=== PATIENT | female | born 1940 | race Caucasian/White ===

== ENCOUNTER 2016-07-30 15:56 | Emergency (ER) | payer OTHER ==
[2016-07-30 16:01] VITALS: BP 144/68; PULSE 66; TEMP 98.2; BMI 32.0
--- NOTE | 2016-07-30 16:45 | PDOC ---
History of Present Illness - General Chief Complaint: Cold Symptoms Stated Complaint: POSSIBLE FLU Time Seen by Provider: 07/30/16 16:33 History Source: Patient Exam Limitations: Language Barrier - History of Present Illness Initial Comments: 07/30/16 16:40 BIB son who is helping with translation; pt sick today to be admitted with positive flu; pt unable to which PCP; pt has no symptoms now Associated Symptoms: denies: cough, fever/chills, malaise, rash Past History - Past Medical History Allergies/Adverse Reactions: Allergies Allergy/AdvReac Type Severity Reaction Status Date / Time unknown antibiotic Allergy Nausea Uncoded 07/30/16 16:01 Home Medications: Ambulatory Orders Amlodipine Besylate [Norvasc -] 5 mg PO DAILY 06/22/13 Clonidine HCl 0.1 mg PO PRN 06/22/13 Valsartan/Hydrochlorothiazide [Diovan Hct 160-12.5 mg Tablet] 1 combo PO DAILY 06/22/13 Anemia: No Asthma: No Cancer: No Cardiac Disorders: No CVA: No COPD: No CHF: No DVT: No Dementia: No Diabetes: No Dialysis: No GI Disorders: No Disorders: No HTN: Yes Hypercholesterolemia: Yes Kidney Stones: Yes - Psycho/Social/Smoking Cessation Hx Anxiety: No Suicidal Ideation: No Smoking History: Never smoked Hx Alcohol Use: No Drug/Substance Use Hx: No Substance Use Type: None Review of Systems - Review of Systems Constitutional: No: Chills, Fever, Malaise HEENTM: No: Ear Discharge, Nose Pain, Nose Congestion, Hearing Loss, Throat Pain , Throat Swelling, Difficulty Swallowing Respiratory: No: Symptoms reported, Cough Cardiac (ROS): No: Symptoms Reported ABD/GI: No: Symptoms Reported *Physical Exam - Vital Signs Last Vital Signs Temp Pulse Resp BP Pulse Ox 98.2 F 66 20 144/68 95 07/30/16 15:57 07/30/16 15:57 07/30/16 15:57 07/30/16 15:57 07/30/16 15:57 - Physical Exam General Appearance: Yes: Appropriately Dressed. No: Apparent Distress HEENT: positive: TMs Normal, Pharynx Normal Neck: positive: Supple. negative: Tender, Rigid, Lymphadenopathy (R), Lymphadenopathy (L) Respiratory/Chest: positive: Lungs Clear, Normal Breath Sounds. negative: Chest Tender Cardiovascular: positive: Regular Rhythm, Regular Rate. negative: Murmur Gastrointestinal/Abdominal: positive: Normal Bowel Sounds, Soft. negative: Tender Medical Decision Making - Medical Decision Making 07/30/16 16:43 will prophalaxis with tamiflu; no flu shot this year done *DC/Admit/Observation/Transfer Diagnosis at time of Disposition: Exposure to influenza - Discharge Dispostion Disposition: HOME Condition at time of disposition: Stable Admit: No - Patient Instructions Additional Instructions: please follow up with Local MD in 2 days for reevaluation
== END 2016-07-30 16:50 | disposition home or self-care (01) ==
LOC: JERFT 15:56
DX: Z20.828 Contact with and (suspected) exposure to other viral communicable diseases (principal); I10 Essential (primary) hypertension; E78.00 Pure hypercholesterolemia, unspecified
CPT/HCPCS: 99281-25

== ENCOUNTER 2017-01-25 22:03 | Emergency (ER) | payer OTHER ==
[2017-01-25 22:09] VITALS: BP 153/81; PULSE 64; TEMP 97.6; BMI 27.4
== END 2017-01-25 23:29 | disposition left against medical advice (07) ==
LOC: JER 22:03
DX: Z53.21 Procedure and treatment not carried out due to patient leaving prior to being seen by health care provider (principal)
CPT/HCPCS: 99281-25

== ENCOUNTER 2017-05-09 06:09 | Day surgery (SDC) | payer OTHER ==
[2017-05-08 11:36] VITALS: BMI 28.9
[2017-05-09] MEDS ORDERED: CEFAZOLIN 2 GM/D5W 50 ML IVPB ONE (07:51)
[2017-05-09] MEDS ORDERED: ceFAZolin SODIUM 1 GM VIAL IVPB ONE (08:05)
[2017-05-09] MEDS ORDERED: morphine SULFATE 4 MG/ML VIAL IVPUSH PRN (08:59)
[2017-05-09] MEDS ORDERED: ONDANSETRON 4 MG/2 ML VIAL IVPUSH PRN (09:01)
[2017-05-09] MEDS ORDERED: oxyCODONE HCL 5 MG TABLET PO PRN ×2 (09:05→09:29)
[2017-05-09] MEDS ORDERED: PROMETHAZINE HCL 25 MG/1 ML VIAL ONE (09:26)
[2017-05-09] MEDS ORDERED: PROMETHAZINE HCL 25 MG/1 ML VIAL IVPUSH PRN (09:29)
[2017-05-09] MEDS ORDERED: LACTATED RINGERS SOLUTION 1,000 ML IV SCH (09:30)
[2017-05-09] MEDS ORDERED: PROMETHAZINE HCL 25 MG/1 ML VIAL IVPUSH ONE (09:35)
[2017-05-09] MEDS ORDERED: oxyCODONE HCL 5 MG TABLET ONE (11:57)
[2017-05-09] MEDS ORDERED: oxyCODONE HCL 5 MG TABLET PO ONE (12:00)
--- NOTE | 2017-05-09 12:03 | OP ---
DATE OF OPERATION: 05/09/2017 PREOPERATIVE DIAGNOSIS: Complete utero-vaginal prolapse. PROCEDURE PERFORMED: A vaginal hysterectomy with colpectomy, enterocele repair, and perineoplasty. PRIMARY SURGEON: Darion Ordaz MD DIRECTOR INFORMATICS: Scott Sun MD DESCRIPTION OF PROCEDURE: After adequate anesthesia, patient was prepped and draped in the dorsal lithotomy position. A dilute solution of Pitressin was injected throughout the entire vaginal epithelium. A Spring catheter was inserted. A vertical incision was made on the vaginal epithelium, and the anterior and posterior cul-de-sacs were entered without any difficulty. The uterosacral and cardinal ligament complexes, followed by the uterine artery, followed by the ovarian ligament were clamped, cut, and suture ligated and removed. Ovaries were palpated and visualized to be normal, but too high up to take out safely from below and, therefore, had to be left behind. Anterior cul-de-sac was closed off using 0 Vicryl suture circumferential stitch x2. The cystocele was dissected away from the anterior vaginal wall and then plicated using 0 Vicryl suture in circumferential stitch x3 layers. Excess vaginal epithelium was then excised. The sling was then placed in by Dr. Sun. Please review his OR report. Once this was completed, the cystoscopy was performed, and both ureters were noted to be patent. The vaginal epithelium was closed anterior to posterior using 2-0 Vicryl suture in continuous fashion. Rectal examination negative for any foreign bodies. Also, please note that there were no foreign bodies in the bladder. Kelvin [id number]
--- NOTE | 2017-05-09 12:21 | OP ---
DATE OF OPERATION: 05/09/2017 PREOPERATIVE DIAGNOSIS: Stress urinary incontinence. POSTOPERATIVE DIAGNOSIS: Stress urinary incontinence. PROCEDURE: Suburethral sling placement. SURGEON: Scott Sun MD INDICATIONS: The patient is a 77-year-old female who is admitted for vaginal hysterectomy, cystocele repair by Dr. Ordaz and sling repair by myself. With regard to sling, the patient understood the risk of bleeding, infection, stricture formation, erosion of sling, urinary tension, De [place] urge incontinence, potential need for additional procedures, and potential injury to adjacent organs. DESCRIPTION OF PROCEDURE: After informed consent was obtained, the patient was taken to the OR and placed supine on the operating room table. Cardiac monitoring was administered and general anesthesia established. She was prepped and draped in the dorsal lithotomy position with her legs in candy cane stirrups. Dr. Ordaz proceeded with the vaginal hysterectomy and cystocele repair for which I assisted him in. At this point then I proceeded to perform the sling. Pitressin was injected in the suburethral space, and a mid urethral, suburethral incision was created with a No. 15 blade. The vaginal epithelium was dissected from the undersurface of the urethra bilaterally using sharp and blunt dissection. Using finger dissection, the obturator fossa was palpated vaginally. At this point, attention was turned to performing the sling. The right trocar was placed onto the anchor of the sling. The trocar was advanced into the obturator fossa and then the obturator membrane was pierced and then a quarter turn allowed the sling to be anchored on the patient's right side. In a similar fashion, the left anchor was attached to the trocar, and the trocar was advanced vaginally into the obturator membrane. The obturator membrane was pierced and then a quarter turn of the trocar allowed the anchor to be positioned beyond the obturator membrane. A pull on each side indicated appropriate fixation to the obturator membrane without slippage or sliding. The sling was slightly tensioned until a right-angle clamp could be easily placed between the sling and the undersurface of the urethra to minimize undue tension. With the sling in place, the vaginal mucosa overlying the mid urethra was then enclosed with 2-0 Vicryl and then the rest of the procedure closure of the cystocele repair was done by Dr. Ordaz. Prior to Dr. Ordaz's closure, I performed a cystoscopy to confirm no evidence of any bladder or urethral injury, and bilateral ureteral orifices were seen with normal efflux. Then Dr. Ordaz finished closure of his part of the procedure. The patient was then awoken from anesthesia and transferred to the recovery room in stable condition. There were no complications. Kelvin [id number]
[2017-05-09] MEDS: DEXTROSE 5%-0.45% SALINE 1,000 ML IV SCH ×2 (14:22→22:24)
[2017-05-09] MEDS: FUROSEMIDE 20 MG TABLET (FP) PO SCH (14:33)
[2017-05-09] MEDS: amLODIPine BESYLATE 5 MG TABLET (FP) PO SCH ×2 (14:33→21:29)
[2017-05-09] MEDS: METOPROLOL SUCCINATE 50 MG TAB.SR.24H (FP) PO SCH (14:34)
[2017-05-09] MEDS: hydrALAZINE HCL 25 MG TABLET (FP) PO SCH ×2 (14:38→21:28)
[2017-05-10] MEDS: hydrALAZINE HCL 25 MG TABLET (FP) PO SCH ×3 (10:11→21:22)
[2017-05-10] MEDS ORDERED: ACETAMINOPHEN 325 MG TABLET (FP) PO PRN (10:35)
--- NOTE | 2017-05-10 10:41 | PN ---
Progress Note (short form) - Note Progress Note: Post op day#1.S/P Vaginal hysterectomy with BSO,suburetheral sling,colpectomy and enterocele repair under GA uneventful.Patient stable and c/o some pain for which i ordered Tylenol as she does not want to take narcotics.No any anesthesia related problem.Patient DC from the anesthesia care.
[2017-05-10] MEDS: DEXTROSE 5%-0.45% SALINE 1,000 ML IV SCH ×2 (11:18→18:19)
[2017-05-10] MEDS: METOPROLOL SUCCINATE 50 MG TAB.SR.24H (FP) PO SCH (11:24)
[2017-05-10] MEDS: FUROSEMIDE 20 MG TABLET (FP) PO SCH (11:24)
[2017-05-10] MEDS: amLODIPine BESYLATE 5 MG TABLET (FP) PO SCH ×2 (11:24→21:22)
--- NOTE | 2017-05-10 16:03 | PATH ---
Surgical Pathology Report Patient Name: HEATHER MORSE Med. Rec. #: [id number] /Age/Gender: 1940 (Age: 77) / F Account: [id number] Location: [facility] MED/SURG Taken: 05/09/2017 Received: 05/09/2017 Reported: 05/10/2017 Physicians: Scott Sun M.D. Specimen(s) Received UTERUS Clinical History Prolapse, cystocele, rectocele Final Diagnosis UTERUS AND CERVIX, HYSTERECTOMY: UTERUS AND CERVIX, 75 GRAMS, WITH ATROPHIC ENDOMETRIUM, UNREMARKABLE MYOMETRIUM, AND UNREMARKABLE CERVIX. CYSTIC AREA ATTACHED TO THE VAGINAL CUFF SUGGESTIVE OF CYSTOCELE PRESENT. Electronically Signed Afshin Eddy M.D. Gross Description Received in formalin labeled "uterus," is a 75 g hysterectomy specimen with an attached 7.2 x 4.3 cm vaginal cuff. There is no attached adnexa present. The specimen measures 7.3 cm from superior to inferior, 4.0 cm from left to right and 2.5 cm from anterior to posterior. The vaginal cuff displays a focal cystic-appearing lesion, consistent with a cystocele. The endometrial cavity measures 3.5 cm in length and 1.6 cm from cornu to cornu. The endometrium is perez and averages 0.1 cm in thickness. The myometrium is perez-pink and averages 1.2 cm in thickness. No intramural nodules are identified. [employer] sections are submitted in 7 cassettes as follows: 1-anterior vaginal cuff; 2-posterior vaginal cuff; 3-vaginal cuff with cystocele; 7-6-[id number] endomyometrium; 9-0-xxiobnuqp endomyometrium. /05/09/2017 [facility]05/09/2017
[2017-05-10] MEDS ORDERED: BISACODYL 10 MG SUPP.RECT RC ONE ×2 (21:15→23:00)
[2017-05-11] MEDS: hydrALAZINE HCL 25 MG TABLET (FP) PO SCH (06:51)
[2017-05-11] MEDS: FUROSEMIDE 20 MG TABLET (FP) PO SCH (10:04)
[2017-05-11] MEDS: METOPROLOL SUCCINATE 50 MG TAB.SR.24H (FP) PO SCH (10:04)
[2017-05-11] MEDS: amLODIPine BESYLATE 5 MG TABLET (FP) PO SCH (10:04)
[2017-05-11 10:11] VITALS: PULSE 72
[2017-05-11 10:36] VITALS: BP 135/64; TEMP 98.5
== END 2017-05-11 12:26 | disposition home or self-care (01) ==
LOC: JASUSAT 06:09 → J8W 13:16 → JASUSAT 05-11 12:26
PROVIDERS: ATTEND Obstetrics & Gynecology Female Pelvic Medicine and Reconstructive Surgery
PROC: 0TSD0ZZ Reposition Urethra, Open Approach (ICD-10-PCS; principal; 2017-05-09 07:30)
PROC: 0UTG7ZZ Resection of Vagina, Via Natural or Artificial Opening (ICD-10-PCS; 2017-05-09 07:30)
PROC: 0JQC0ZZ Repair Pelvic Region Subcutaneous Tissue and Fascia, Open Approach (ICD-10-PCS; 2017-05-09 07:30)
DX: N81.3 Complete uterovaginal prolapse (principal); N39.3 Stress incontinence (female) (male)
CPT/HCPCS: 86850; 86900; 86901; 88305-TC; 94760

== ENCOUNTER 2018-02-16 12:12 | Day surgery (SDC) | payer OTHER ==
[2018-02-15 09:32] VITALS: BMI 26.9
[2018-02-16 13:50] VITALS: TEMP 97.8
[2018-02-16 14:23] VITALS: PULSE 51
[2018-02-16 15:11] VITALS: BP 144/71
--- NOTE | 2018-02-20 15:13 | PATH ---
Surgical Pathology Report Patient Name: HEATHER MORSE [facility]. Rec. #: [id number] /Age/Gender: 1940 (Age: 77) / F Account: [id number] Location: U-ENDOSCOPY Taken: 02/16/2018 Received: 02/19/2018 Reported: 02/20/2018 Physicians: Chan Peres M.D. Specimen(s) Received A: BX 2ND PORTION DUODENUM AND BULB B: BX GASTRIC ANTRUM C: BX ANTRUM POLYP FROM HOT SNARE Clinical History Screening Postoperative diagnosis: Gastric polyp Final Diagnosis A. SECOND PORTION DUODENUM AND BULB OF, BIOPSY: DUODENAL MUCOSA WITH MILD CHRONIC DUODENITIS. B. GASTRIC ANTRUM, BIOPSY: GASTRIC MUCOSA WITH MILD CHRONIC GASTRITIS. IMMUNOSTAIN IS NEGATIVE FOR H. PYLORI ORGANISMS. C. ANTRUM POLYP, POLYPECTOMY: HYPERPLASTIC POLYP. IMMUNOSTAIN IS NEGATIVE FOR H. PYLORI ORGANISMS Electronically Signed Amee Bowden M.D. Gross Description A. Received in formalin, labeled "biopsy second portion of duodenum and bulb" are 3 perez, irregular portions of soft tissue ranging from 0.3-0.4 cm. in greatest dimension. The specimens are submitted in toto in one cassette. B. Received in formalin, labeled "biopsy antrum" are 4 perez, irregular portions of soft tissue ranging from 0.1-0.4 cm. in greatest dimension. The specimens are submitted in toto in one cassette. C. Received in formalin labeled "gastric antrum polyp," are 5 perez, polypoid portions of soft tissue ranging from 0.4-0.9 cm in greatest dimension. The specimens are submitted in toto in one cassette. 02/19/2018 [facility]02/19/2018
== END 2018-02-16 15:00 | disposition home or self-care (01) ==
LOC: JASU-ENDO 12:12
PROVIDERS: ATTEND Internal Medicine Gastroenterology
PROC: 0DB68ZX Excision of Stomach, Via Natural or Artificial Opening Endoscopic, Diagnostic (ICD-10-PCS; 2018-02-16)
PROC: 0DB98ZX Excision of Duodenum, Via Natural or Artificial Opening Endoscopic, Diagnostic (ICD-10-PCS; 2018-02-16)
PROC: 0DJD8ZZ Inspection of Lower Intestinal Tract, Via Natural or Artificial Opening Endoscopic (ICD-10-PCS; principal; 2018-02-16 12:15)
DX: Z12.11 Encounter for screening for malignant neoplasm of colon (principal); R19.5 Other fecal abnormalities; K57.30 Diverticulosis of large intestine without perforation or abscess without bleeding; K64.8 Other hemorrhoids; K31.7 Polyp of stomach and duodenum; K29.40 Chronic atrophic gastritis without bleeding
CPT/HCPCS: 43239; 43251; G0121; 88305-TC; 88342-TC

== ENCOUNTER 2020-02-17 09:58 | Emergency (ER) | payer OTHER ==
[2020-02-17 10:15] VITALS: TEMP 98; BMI 24.7
[2020-02-17] MEDS ORDERED: FAMOTIDINE 20 MG/50 ML IVPB 20 MG/50 ML MG IVPB ONE ×3 (11:33→14:48)
[2020-02-17] MEDS ORDERED: ONDANSETRON 4 MG/2 ML VIAL IVPUSH ONE (11:33)
[2020-02-17] MEDS ORDERED: SODIUM CHLORIDE 1,000 ML IV STA (11:34)
--- NOTE | 2020-02-17 12:23 | PDOC ---
Documentation entered by Billie Oscar SCRIBE, acting as scribe for Viry Solis MD. Viry Solis MD: This documentation has been prepared by the shelbieibeDayne Ana, SCRIBE, under my direction and personally reviewed by me in its entirety. I confirm that the documentation accurately reflects all work, treatment, procedures, and medical decision making performed by me. Attending Attestation - Resident Resident Name: Salvatore Rachel - ED Attending Attestation I have performed the following: I have examined & evaluated the patient, The case was reviewed & discussed with the resident, I agree w/resident's findings & plan, Exceptions are as noted - HPI HPI: 02/17/20 11:39 Patient is an 79 year old female with a significant past medical history of HTN, HLD, BPPV and IBS who p/w abdominal pressure which she characterizes as gas, as well as room-spinning dizziness for the past 2 days worse last night. She notes that standing from sitting position makes her symptoms worse. Endorses chronic tinnitus unchanged over the past 4 years. Also notes chronic constipation unchanged today. Patient denies: JAMA, CP, back pain, f/c/n/v/d Allergies: see nurse's note - Physicial Exam PE: 02/17/20 11:46 GENERAL: elderly, pleasant, nontoxic-appearing, A/Ox4, no distress, answers questions appropriately HEENT: PERRLA, EOMI, moist mucous membranes NECK/BACK: no midline ttp, no spinal stepoff or deformity, no hematoma, full ROM, neck supple CARDIOVASCULAR: regular rate/rhythm, no MGR, strong peripheral pulses, capillary refill <2 seconds, extremities wwp, no edema LUNGS/RESPIRATORY: no respiratory distress, CTAB GI/ABDOMEN: symmetric [id number], normoactive BS, soft, mild epigastric ttp, no midline pulsatile masses : no CVA tenderness MSK/EXTREMITIES: no muscle atrophy, no acute deformity SKIN: warm and dry, no pallor, no jaundice, no rash, no pathologic-appearing bruising, no skin breakdown, no cuts, no lesions NEUROLOGICAL: GCS 15, CN II-XII grossly intact, 5/5 strength proximally and distally, no facial droop, horizontal nystagmus on extreme bilateral horizontal gaze, +[place]-Hallpike, no vertical nystagmus, negative Romberg, no truncal ataxia, no pronator drift, gait not tested at this time - Medical Decision Making 02/17/20 12:18 79YOF p/w room-spinning dizziness with their recall of sxs consistent with vertigo. Initial Vital Signs Temp Pulse Resp BP Pulse Ox 98 F 58 L 18 151/64 99 02/17/20 10:13 02/17/20 10:13 02/17/20 10:13 02/17/20 10:13 02/17/20 10:13 DDX IBNLT: most likely peripheral cause e.g. BPPV, otitis media, vestibular neuritis, Meniere disease, perilymphatic fistula, semicircular canal dehiscence syndrome, etc. Very unlikely central cause given lack Possibly non-vertiginous cause of dizziness (i.e. lightheadedness c/f pre-syncope). Provider Orders Category Date Time Status HEAD CT WITHOUT CONTRAST [CT] Stat CT Scan 02/17/20 15:06 Completed EKG [ELECTROCARDIOGRAM] [CARD] Stat Cardiology 02/17/20 10:20 Completed EKG needed NOW Care 02/17/20 10:20 Completed CBC WITH DIFFERENTIAL Stat Lab 02/17/20 13:05 Completed CMP [COMP METABOLIC PANEL] Stat Lab 02/17/20 13:05 Completed LIPASE Stat Lab 02/17/20 13:05 Completed TROPONIN I ([facility]) Stat Lab 02/17/20 13:05 Completed UA ([facility]) ONLY Stat Lab 02/17/20 11:33 Uncollected Famotidine 20 mg/50 ml Ivpb [Pepcid 20 mg Premixed Ivpb Medication 02/17/20 11:33 Discontinued -] 20 mg in 50 ml IVPB ONCE Famotidine 20 mg/50 ml Ivpb [Pepcid 20 mg Premixed Ivpb Medication 02/17/20 13:09 Discontinued -] 20 mg in 50 ml IVPB UD Famotidine 20 mg/50 ml Ivpb [Pepcid 20 mg Premixed Ivpb Medication 02/17/20 14:48 Discontinued -] 20 mg in 50 ml IVPB UD Meclizine HCl [Antivert -] Medication 02/17/20 13:09 Discontinued 25 mg .ROUTE .STK-MED ONE Meclizine HCl [Antivert -] Medication 02/17/20 12:24 Discontinued 25 mg PO ONCE ONE Ondansetron Injection [Zofran Injection] Medication 02/17/20 11:33 Discontinued 4 mg IVPUSH ONCE ONE Sodium Chloride [Normal Saline -] 1,000 ml Medication 02/17/20 11:34 Discontinued IV ASDIR Urine Culture [URINE CULTURE] Stat Micro 02/17/20 11:33 Uncollected IV Insert NOW Phy Order 02/17/20 11:33 Active Medications Discontinued Medications Generic Name Dose Route Start Last Admin Trade Name Fredeejay PRN Reason Stop Dose Admin Famotidine/Sodium Chloride 20 mg in 50 mls @ 100 mls/hr 02/17/20 11:33 02/17/20 14:51 Pepcid 20 Mg Premixed Ivpb - IVPB 02/17/20 12:02 100 mls/hr ONCE ONE Administration Sodium Chloride 1,000 mls @ 1,000 mls/hr 02/17/20 11:34 02/17/20 13:45 Normal Saline - IV 02/17/20 12:33 1,000 mls/hr ASDIR STA Administration Famotidine/Sodium Chloride Confirm 02/17/20 13:09 Pepcid 20 Mg Premixed Ivpb - Administered 02/17/20 13:10 Dose 20 mg in 50 mls @ ud IVPB .STK-MED ONE Famotidine/Sodium Chloride Confirm 02/17/20 14:48 Pepcid 20 Mg Premixed Ivpb - Administered 02/17/20 14:49 Dose 20 mg in 50 mls @ ud IVPB .STK-MED ONE Meclizine HCl 25 mg 02/17/20 12:24 02/17/20 13:45 Antivert - PO 02/17/20 12:25 25 mg ONCE ONE Administration Meclizine HCl Confirm 02/17/20 13:09 Antivert - Administered 02/17/20 13:10 Dose 25 mg .ROUTE .STK-MED ONE Ondansetron HCl 4 mg 02/17/20 11:33 02/17/20 13:45 Zofran Injection IVPUSH 02/17/20 11:34 4 mg ONCE ONE Administration Lab Results WBC 4.9 K/mm3 (4.0-10.0) 02/17/20 13:05 RBC 5.06 M/mm3 (3.60-5.2) 02/17/20 13:05 Hgb 16.0 GM/dL (10.7-15.3) H 02/17/20 13:05 Hct 47.5 % (32.4-45.2) H 02/17/20 13:05 MCV 93.8 fl (80-96) 02/17/20 13:05 MCH 31.7 pg (25.7-33.7) 02/17/20 13:05 MCHC 33.8 g/dl (32.0-36.0) 02/17/20 13:05 RDW 14.0 % (11.6-15.6) 02/17/20 13:05 Plt Count 245 K/MM3 (134-434) D 02/17/20 13:05 MPV 9.0 fl (7.5-11.1) 02/17/20 13:05 Absolute Neuts (auto) 2.7 K/mm3 (1.5-8.0) 02/17/20 13:05 Neutrophils % 55.4 % (42.8-82.8) 02/17/20 13:05 Lymphocytes % 31.2 % (8-40) 02/17/20 13:05 Monocytes % 9.3 % (3.8-10.2) 02/17/20 13:05 Eosinophils % 2.5 % (0-4.5) 02/17/20 13:05 Basophils % 1.6 % (0-2.0) 02/17/20 13:05 Nucleated RBC % 0 % (0-0) 02/17/20 13:05 Sodium 138 mmol/L (136-145) 02/17/20 13:05 Potassium 4.1 mmol/L (3.5-5.1) 02/17/20 13:05 Chloride 100 mmol/L (98-107) 02/17/20 13:05 Carbon Dioxide 30 mmol/L (21-32) 02/17/20 13:05 Anion Gap 8 MMOL/L (8-16) 02/17/20 13:05 BUN 13.2 mg/dL (7-18) 02/17/20 13:05 Creatinine 0.6 mg/dL (0.55-1.3) 02/17/20 13:05 Est GFR (CKD-EPI)AfAm 99.07 02/17/20 13:05 Est GFR (CKD-EPI)NonAf 85.48 02/17/20 13:05 Random Glucose 107 mg/dL (74-106) H 02/17/20 13:05 Calcium 10.2 mg/dL (8.5-10.1) H 02/17/20 13:05 Total Bilirubin 0.7 mg/dL (0.2-1) 02/17/20 13:05 AST 30 U/L (15-37) 02/17/20 13:05 ALT 33 U/L (13-61) 02/17/20 13:05 Alkaline Phosphatase 59 U/L (45-117) 02/17/20 13:05 Troponin I < 0.02 ng/ml (0.00-0.05) 02/17/20 13:05 Total Protein 8.4 g/dl (6.4-8.2) H 02/17/20 13:05 Albumin 4.3 g/dl (3.4-5.0) 02/17/20 13:05 Lipase 136 U/L (73-393) 02/17/20 13:05 CT/HEAD CT WITHOUT CONTRAST Evaluate for vertigo CT scan of the head without intravenous contrast Since prior CT scan of the head dated 09/19/2009, there remains moderate volume loss and ventricular dilatation. Mild periventricular chronic microvascular ischemic disease changes are present. No mass lesion, abigail ss acute infarct or intracranial hemorrhage are identified. There is no shift of the midline structures. The craniocervical junction appears unremarkable. The calvarium is intact. Mild deviation of the nasal septum to the right IMPRESSION: No significant interval change or CT evidence of acute intracranial pathology is identified. The patient's symptoms have resolved in the ED with medications. She is able to ambulate per her normal baseline, no ataxia, no neuro focal deficits, and she is appropriate for discharge home with close outpatient follow-up. Specific return precautions are discussed as in resident note. Heart Score/ECG Review #1 02/17/20 10:28 Sinus rhythm, rate 55, normal axis and intervals, no ischemic ST-T changes Discharge - Discharge Information Problems reviewed: Yes Clinical Impression/Diagnosis: Epigastric pain, Vertigo Condition: Stable Disposition: HOME - Admission No - Additional Discharge Information Prescriptions: Meclizine HCl 25 mg PO BID PRN #10 tablet PRN Reason: Vertigo Omeprazole 20 mg PO DAILY #14 capsule. - Follow up/Referral Referrals: Paulo Correa MD [Primary Care Provider] - - Patient Discharge Instructions Patient Printed Discharge Instructions: DI for Vertigo, DI for Epigastric Pain Additional Instructions: You were seen in the ER for vertigo and upper abdominal discomfort. We did an exam, laboratory work on your blood and urine, an electrocardiogram, and a head CT, and we did not find any concerning results. We gave you medications here in the department which did help your symptoms. After our assessment, we do not believe you are having a medical emergency at this time, and we believe you are safe to go home. Please follow up with your regular PCP in 1-3 days. Call their clinic, tell them you were seen in the ER, and tell them you need a follow-up. If you have any new or worsening symptoms (especially fainting or falling down, headache, neck pain, room-spinning vertigo-type dizziness that is new for you, numbness, tingling, new weakness of one or more parts of your body, vision changes, slurred speech, loss of consciousness, or seizures) please come back to the ER at any time (24 hours a day). Please do not drive if you are dizzy. If you are having severe or life threatening symptoms, or symptoms that make it unsafe to drive or have someone drive you, please call 911 supervisor [email or web address] your medications that we are sending to your pharmacy and take them as directed. - Post Discharge Activity
[2020-02-17] MEDS ORDERED: MECLIZINE HCL 25 MG TABLET (FP) PO ONE (12:24)
--- NOTE | 2020-02-17 12:54 | PDOC ---
History of Present Illness - History of Present Illness Initial Comments: 02/17/20 12:40 79yo female with PMH HTN and HLD presents with dizziness since last night. States she feels like the room is spinner, her head feel like it is "big" and "heavy", feels unsteady on her feet. Complains of ringing in her ears for years, no change recently. Also complains of acute on chronic belching. States it has been going on for years and has a GI appointment at 5pm today. Also complains of acute on chronic epigastric pain, non-radiating. No relieving or exacerbating factors. Denies headache, fever, chills, n/v, CP, SOB, urinary symptoms. ROS GENERAL/CONSTITUTIONAL: No fever or chills. No weakness. HEAD, EYES, EARS, NOSE AND THROAT: No change in vision. No ear pain or discharge. No sore throat. chronic ear ringing CARDIOVASCULAR: No chest pain or shortness of breath RESPIRATORY: No cough, wheezing, or hemoptysis. GASTROINTESTINAL: No nausea, vomiting, diarrhea. belching. constipation (BM every day, but strains and feels like too little comes out) GENITOURINARY: No dysuria, frequency, or change in urination. MUSCULOSKELETAL: No joint or muscle swelling or pain. No neck or back pain. SKIN: No rash NEUROLOGIC: vertigo. No headache, loss of consciousness, or change in strength/sensation. ENDOCRINE: No increased thirst. No abnormal weight change HEMATOLOGIC/LYMPHATIC: No anemia, easy bleeding, or history of blood clots. ALLERGIC/IMMUNOLOGIC: No hives or skin allergy. PE GENERAL: Awake, alert, and fully oriented, in no acute distress HEAD: No signs of trauma, normocephalic, atraumatic EYES: PERRLA, EOMI, sclera anicteric, conjunctiva clear ENT: Auricles normal inspection, hearing grossly normal, nares patent, oropharynx clear without exudates. Moist mucosa. TMs not visualized secondary to copious cerumen NECK: Normal ROM, supple, no lymphadenopathy, JVD, or masses LUNGS: No distress, speaks full sentences, clear to auscultation bilaterally HEART: Regular rate and rhythm, normal S1 and S2, no murmurs, rubs or gallops, peripheral pulses normal and equal bilaterally. ABDOMEN: Soft, nontender, normoactive bowel sounds. No guarding, no rebound. No masses EXTREMITIES : Normal inspection, Normal range of motion, no edema. No clubbing or cyanosis. NEUROLOGICAL: Reproduction of vertigo symptoms when going from lying flat to seated position. HINTS Exam: positive head impulse test (gaze deviation when head is turned left), no nystagmus, no skew. Cranial nerves II through XII grossly intact. Normal speech, normal gait, normal strength and sensation in all extremities SKIN: Warm, Dry, normal turgor, no rashes or lesions noted MDM: 79yo female presents with vertigo, as well as epigastric pain and belching. HINTS exam perfomed by the ED summer intern indicates periferal vertigo, although this exam was validated when performed by neuro-ophthalmologists. Elderly female with vascular risk factors, so will get head CT to evaluate for posterior CVA and consider f/u with MRI. Most likely BPPV. Epigastric pain and belching is likely a chronic issue, but could be atypical presentation of ACS or other abdominal pathology. EKG was sinus bradycardia without ischemic changes. Will get CBC, CMP, lipase, trops, UA. Will treat with famotidine, meclizine, zofran and reevaluate. 02/17/20 18:[address] head were negative. Patient reports decrease symptoms and able to ambulate without assistance. DC home with meclizine, zofran, PCP f/u, and return precautions. Pt agrees to plan. 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) Cardiac Disorders: No CVA: No COPD: No CHF: No DVT: No Dementia: No Diabetes: No Dialysis: No GI Disorders: Yes (GASTRIC POLYP SURGERY, PEPTIC ULCER DISEASE) Disorders: No HTN: Yes Hypercholesterolemia: Yes Kidney Stones: Yes Liver Disease: No Seizures: No Thyroid Disease: No - Surgical History Abdominal Surgery: No Appendectomy: No Cardiac Surgery: No Cholecystectomy: No Lung Surgery: No Neurologic Surgery: No Orthopedic Surgery: No - Psycho-Social/Smoking History Smoking History: Never smoked Have you smoked in the past 12 months: No - Substance Abuse Hx (Audit-C & DAST Scrn) How often the patient has a drink containing alcohol: Never Score: In Men: 4 or > Positive; In Women: 3 or > Positive: 0 Screen Result (Pos requires Nsg. Audit-10AR): Negative In the last yr the pt used illegal drug/Rx for NonMed reason: No Score: Yes response is considered Positive: 0 Screen Result (Positive result requires Nsg. DAST-10): Negative <Salvatore Rachel - Last Filed: 02/17/20 18:54> <Viry Solis - Last Filed: 02/18/20 12:19> - Medical History Allergies/Adverse Reactions: Allergies Allergy/AdvReac Type Severity Reaction Status Date / Time amoxicillin Allergy Verified 02/17/20 10:08 citalopram Allergy Verified 02/17/20 10:08 levofloxacin [From Levaquin] Allergy Verified 02/17/20 10:08 nitrofurantoin Allergy Verified 02/17/20 10:08 macrocrystalline [From Macrodantin] Sulfa (Sulfonamide Allergy Verified 02/17/20 10:08 Antibiotics) Home Medications: Ambulatory Orders Alprazolam [Xanax] 0.5 mg PO ASDIR 01/25/17 Amlodipine Besylate 5 mg PO HS 01/25/17 Aspirin [ASA -] 81 mg PO DAILY 01/25/17 Atorvastatin Ca [Lipitor] 40 mg PO HS 01/25/17 Calcium Carbonate [Calcium] 500 mg PO DAILY 01/25/17 Cholecalciferol (Vitamin D3) [Vitamin D3] 1,000 unit PO DAILY 01/25/17 Furosemide [Lasix -] 20 mg PO DAILY 01/25/17 Metoprolol Succinate [Toprol Xl] 50 mg PO BID 01/25/17 Multivit-Min/FA/Lycopen/Lutein [Centrum Silver Tablet] 1 each PO DAILY 01/25/17 Omeprazole 20 mg PO DAILY 01/25/17 hydrALAZINE HCL [Apresoline -] 25 mg PO TID 01/25/17 Valsartan/Hydrochlorothiazide [Valsartan-Hctz 320-25 mg Tab] 80 mg PO BID Meclizine HCl 25 mg PO BID PRN #10 tablet 02/17/20 Omeprazole 20 mg PO DAILY #14 capsule. 02/17/20 Polyethylene Glycol 3350 [Miralax (For Bowel Prep) -] 17 gm PO DAILY PRN 02/17/20 *Physical Exam - Vital Signs Last Vital Signs Temp Pulse Resp BP Pulse Ox 98 F 58 L 18 151/64 99 02/17/20 10:13 02/17/20 10:13 02/17/20 10:13 02/17/20 10:13 02/17/20 10:13 <Salvatore Rachel - Last Filed: 02/17/20 18:54> - Vital Signs Last Vital Signs Temp Pulse Resp BP Pulse Ox 98 F 60 15 139/65 99 02/17/20 10:13 02/17/20 17:02 02/17/20 17:02 02/17/20 17:02 02/17/20 17:02 <Viry Solis - Last Filed: 02/18/20 12:19> ED Treatment Course - LABORATORY CBC & Chemistry Diagram: 02/17/20 13:05 02/17/20 13:05 <Salvatore Rachel - Last Filed: 02/17/20 18:54> - LABORATORY CBC & Chemistry Diagram: 02/17/20 13:05 02/17/20 13:05 - ADDITIONAL ORDERS Additional order review: 02/17/20 13:05 RBC 5.06 MCV 93.8 MCHC 33.8 RDW 14.0 MPV 9.0 Neutrophils % 55.4 Lymphocytes % 31.2 Monocytes % 9.3 Eosinophils % 2.5 Basophils % 1.6 - Medications Given in the ED: ED Medications Discontinued Medications Generic Name Dose Route Start Last Admin Trade Name Freq PRN Reason Stop Dose Admin Famotidine/Sodium Chloride 20 mg in 50 mls @ 100 mls/hr 02/17/20 11:33 02/17/20 14:51 Pepcid 20 Mg Premixed Ivpb - IVPB 02/17/20 12:02 100 mls/hr ONCE ONE Administration Sodium Chloride 1,000 mls @ 1,000 mls/hr 02/17/20 11:34 02/17/20 13:45 Normal Saline - IV 02/17/20 12:33 1,000 mls/hr ASDIR STA Administration Meclizine HCl 25 mg 02/17/20 12:24 02/17/20 13:45 Antivert - PO 02/17/20 12:25 25 mg ONCE ONE Administration Ondansetron HCl 4 mg 02/17/20 11:33 02/17/20 13:45 Zofran Injection IVPUSH 02/17/20 11:34 4 mg ONCE ONE Administration <Viry Solis - Last Filed: 02/18/20 12:19> Discharge - Discharge Information Problems reviewed: Yes <Salvatore Rachel - Last Filed: 02/17/20 18:54> <Viry Solis - Last Filed: 02/18/20 12:19> - Discharge Information Clinical Impression/Diagnosis: Epigastric pain, Vertigo Condition: Stable Disposition: HOME - Additional Discharge Information Prescriptions: Meclizine HCl 25 mg PO BID PRN #10 tablet PRN Reason: Vertigo Omeprazole 20 mg PO DAILY #14 capsule.dr - Follow up/Referral Referrals: Paulo Correa MD [Primary Care Provider] - - Patient Discharge Instructions Patient Printed Discharge Instructions: DI for Vertigo, DI for Epigastric Pain Additional Instructions: You were seen in the ER for vertigo and upper abdominal discomfort. We did an exam, laboratory work on your blood and urine, an electrocardiogram, and a head CT, and we did not find any concerning results. We gave you medications here in the department which did help your symptoms. After our assessment, we do not believe you are having a medical emergency at this time, and we believe you are safe to go home. Please follow up with your regular PCP in 1-3 days. Call their clinic, tell them you were seen in the ER, and tell them you need a follow-up. If you have any new or worsening symptoms (especially fainting or falling down, headache, neck pain, room-spinning vertigo-type dizziness that is new for you, numbness, tingling, new weakness of one or more parts of your body, vision changes, slurred speech, loss of consciousness, or seizures) please come back to the ER at any time (24 hours a day). Please do not drive if you are dizzy. If you are having severe or life threatening symptoms, or symptoms that make it unsafe to drive or have someone drive you, please call 911 call centre supervisor your medications that we are sending to your pharmacy and take them as directed. - Post Discharge Activity
[2020-02-17] MEDS ORDERED: MECLIZINE HCL 25 MG TABLET (FP) ONE (13:09)
[2020-02-17 13:15] LABS: BASO % 1.6 % (0-2.0); EOS % 2.5 % (0-4.5); HEMATOCRIT 47.5 % (32.4-45.2); LYMPH % 31.2 % (8-40); MCH 31.7 pg (25.7-33.7); MCHC 33.8 g/dl (32.0-36.0); MEAN CELL VOLUME 93.8 fl (80-96); MONO % 9.3 % (3.8-10.2); NEUT % 55.4 % (42.8-82.8); PLATELET COUNT 245 K/MM3 (134-434); RBC 5.06 M/mm3 (3.60-5.2); WHITE BLOOD COUNT 4.9 K/mm3 (4.0-10.0)
[2020-02-17 13:56] LABS: ALBUMIN 4.3 g/dl (3.4-5.0); BILIRUBIN,TOTAL 0.7 mg/dL (0.2-1); BLOOD UREA NITROGEN 13.2 mg/dL (7-18); CALCIUM 10.2 mg/dL (8.5-10.1); CREATININE 0.6 mg/dL (0.55-1.3); POTASSIUM 4.1 mmol/L (3.5-5.1); TOT PROT 8.4 g/dl (6.4-8.2)
--- NOTE | 2020-02-17 15:58 | EKG ---
Test Reason : Blood Pressure : / mmHG Vent. Rate : 055 BPM Atrial Rate : 055 BPM P-R Int : 184 ms QRS Dur : 078 ms QT Int : 432 ms P-R-T Axes : 074 -13 012 degrees QTc Int : 413 ms SINUS BRADYCARDIA MINIMAL VOLTAGE CRITERIA FOR LVH, MAY BE NORMAL VARIANT BORDERLINE ECG WHEN COMPARED WITH ECG OF 22-JUN-2013 08:51, NO SIGNIFICANT CHANGE WAS FOUND Confirmed by CHARITY LESLIE MD ([id number]) on 02/17/2020 3:58:22 PM Referred By: Confirmed By:CHARITY LESLIE MD
[2020-02-17 17:23] VITALS: BP 139/65; PULSE 60
== END 2020-02-17 17:24 | disposition home or self-care (01) ==
LOC: JER 09:58
PROC: 3E033GC Introduction of Other Therapeutic Substance into Peripheral Vein, Percutaneous Approach (ICD-10-PCS; principal; 2020-02-17)
PROC: 3E0337Z Introduction of Electrolytic and Water Balance Substance into Peripheral Vein, Percutaneous Approach (ICD-10-PCS; 2020-02-17)
DX: R10.13 Epigastric pain (principal); H81.4 Vertigo of central origin
CPT/HCPCS: 36415; 70450-TC; 80053; 83690; 84484; 85025; 93005; 93010; 99285-25

== ENCOUNTER 2021-04-16 04:17 | Day surgery (SDC) | payer OTHER ==
[2021-04-15 09:23] VITALS: BMI 28.0
[2021-04-16] MEDS ORDERED: DEXAMETHASONE SOD PHOSPHATE 10 MG/1 ML VIAL ONE (07:19)
[2021-04-16] MEDS ORDERED: LIDOCAINE HCL/PF 1% SDV 5ML VIAL ONE (07:19)
[2021-04-16] MEDS ORDERED: BUPIVACAINE HCL/PF 0.75% 10 ML VIAL ONE ×2 (08:49→08:50)
[2021-04-16] MEDS ORDERED: IOHEXOL 180 MG/1 ML ML IJ ONE (08:55)
[2021-04-16] MEDS ORDERED: DEXAMETHASONE SOD PHOSPHATE 10 MG/1 ML VIAL IVPUSH ONE (08:56)
[2021-04-16] MEDS ORDERED: LIDOCAINE 1% P/F 10 MG/ML VIAL INF ONE (08:56)
[2021-04-16 10:40] VITALS: BP 143/68; PULSE 61; TEMP 98.3
== END 2021-04-16 09:40 | disposition home or self-care (01) ==
LOC: JASU-SURG 04:17
PROVIDERS: ATTEND Pain Medicine Pain Medicine
PROC: 3E0R33Z Introduction of Anti-inflammatory into Spinal Canal, Percutaneous Approach (ICD-10-PCS; 2021-04-16)
PROC: 3E0R3BZ Introduction of Anesthetic Agent into Spinal Canal, Percutaneous Approach (ICD-10-PCS; principal; 2021-04-16 08:30)
DX: M48.061 Spinal stenosis, lumbar region without neurogenic claudication (principal); M54.16 Radiculopathy, lumbar region
CPT/HCPCS: 76000-TC-FY; J1100

== ENCOUNTER 2021-05-11 04:36 | Day surgery (SDC) | payer OTHER ==
[2021-05-06 15:41] VITALS: BMI 28.0
[2021-05-11] MEDS ORDERED: DEXAMETHASONE SOD PHOSPHATE 10 MG/1 ML VIAL ONE (07:41)
[2021-05-11] MEDS ORDERED: LIDOCAINE HCL/PF 1% SDV 5ML VIAL ONE (07:41)
[2021-05-11] MEDS ORDERED: BUPIVACAINE HCL/PF 0.5% (5MG/ML) 10 ML VIAL ONE (07:41)
[2021-05-11] MEDS ORDERED: SODIUM CHLORIDE 0.9% P/F 10 ML VIAL IJ ONE (07:53)
[2021-05-11] MEDS ORDERED: LIDOCAINE HCL/PF 2% SDV 5ML VIAL ONE (07:53)
[2021-05-11] MEDS ORDERED: DEXAMETHASONE SOD PHOSPHATE 10 MG/1 ML VIAL IVPUSH ONE ×2 (08:28→08:34)
[2021-05-11] MEDS ORDERED: LIDOCAINE 1% P/F 10 MG/ML VIAL PNB ONE ×2 (08:29→08:34)
[2021-05-11] MEDS ORDERED: NORMAL SALINE FLUSH 0.9% 2.5 ML SYRINGE NR ONE ×2 (08:29→08:34)
[2021-05-11] MEDS ORDERED: IOHEXOL 180 MG/1 ML ML IJ ONE ×2 (08:29→08:34)
[2021-05-11 09:00] VITALS: BP 142/64; PULSE 65; TEMP 98.8
== END 2021-05-11 09:40 | disposition home or self-care (01) ==
LOC: JASU-SURG 04:36
PROVIDERS: ATTEND Pain Medicine Pain Medicine
PROC: 3E0R33Z Introduction of Anti-inflammatory into Spinal Canal, Percutaneous Approach (ICD-10-PCS; 2021-05-11)
PROC: B01BYZZ Fluoroscopy of Spinal Cord using Other Contrast (ICD-10-PCS; 2021-05-11)
PROC: 3E0R3BZ Introduction of Anesthetic Agent into Spinal Canal, Percutaneous Approach (ICD-10-PCS; principal; 2021-05-11 08:00)
DX: M54.16 Radiculopathy, lumbar region (principal); M48.061 Spinal stenosis, lumbar region without neurogenic claudication; I10 Essential (primary) hypertension
CPT/HCPCS: 76000-TC-FY; J1100

== ENCOUNTER 2021-08-25 17:11 | Emergency (ER) | payer OTHER ==
[2021-08-25 17:41] VITALS: BP 150/77; PULSE 65; TEMP 98.1; BMI 26.6
[2021-08-25 19:25] LABS: BASO % 0.6 % (0-2.0); EOS % 2.3 % (0-4.5); HEMOGLOBIN 13.7 GM/dL (10.7-15.3); LYMPH % 30.5 % (8-40); MCH 31.8 pg (25.7-33.7); MCHC 34.2 g/dl (32.0-36.0); MEAN CELL VOLUME 93.1 fl (80-96); MEAN PLT VOLUME 8.2 fl (7.5-11.1); MONO % 13.3 % (3.8-10.2); NEUT % 53.3 % (42.8-82.8); PLATELET COUNT 213 10^3/uL (134-434); RDW 14.1 % (11.6-15.6); WHITE BLOOD COUNT 4.3 K/mm3 (4.0-10.0)
[2021-08-25 19:32] LABS: INR 1.09 (0.83-1.09); PROTHROMBIN TIME (PATIENT) 12.6 SEC (9.7-13.0)
[2021-08-25 19:55] LABS: ALBUMIN 3.9 g/dl (3.4-5.0); BLOOD UREA NITROGEN 20.4 mg/dL (7-18); CALCIUM 9.5 mg/dL (8.5-10.1)
[2021-08-25 19:59] LABS: CREATININE 0.8 mg/dL (0.55-1.3)
[2021-08-25 20:00] LABS: BILIRUBIN,TOTAL 0.8 mg/dL (0.2-1); TOT PROT 7.2 g/dl (6.4-8.2)
[2021-08-25 20:09] LABS: EPI CELLS 2 /uL (0-25.1); HYALINE CASTS 0 /uL (0-3.1); PH,URINE 7.5 (5.0-8.0); URINE APPEARANCE CLEAR; URINE BACTERIA 6 /uL (0-1359); URINE BILIRUBIN NEGATIVE (NEGATIVE); URINE COLOR YELLOW; URINE GLUCOSE (UA) NEGATIVE (NEGATIVE); URINE KETONE NEGATIVE (NEGATIVE); URINE LEUK ESTERASE TRACE (NEGATIVE); URINE NITRITE NEGATIVE (NEGATIVE); URINE PROTEIN NEGATIVE (NEGATIVE); URINE RBC 4 /uL (0-23.9); URINE UROBILINOGEN 0.2 mg/dL (0.2-1.0); URINE WBC 12 /uL (0-25.8)
[2021-08-25] MEDS ORDERED: SODIUM CHLORIDE 500 ML IV STA (20:16)
== END 2021-08-25 22:38 | disposition home or self-care (01) ==
LOC: JER 17:11
PROC: 3E0337Z Introduction of Electrolytic and Water Balance Substance into Peripheral Vein, Percutaneous Approach (ICD-10-PCS; principal; 2021-08-25)
DX: R44.3 Hallucinations, unspecified (principal); R41.82 Altered mental status, unspecified
CPT/HCPCS: 36415; 70450-TC; 71046-TC-FY; 80053; 80164; 81003; 84443; 84484; 85025; 85610; 87086; 93005; 93010; 99285-25

== ENCOUNTER 2023-05-31 05:05 | Day surgery (SDC) | payer OTHER ==
[2023-05-23 13:11] VITALS: BMI 31.1
[~2023-05-31 05:05] MED LIST: LIDOCAINE HCL 1%, 10 MG/ML (20ML VIAL) INF ONE
[2023-05-31 07:05] VITALS: PULSE 52; RESP 20; TEMP 97.3
[2023-05-31] MEDS ORDERED: LIDOCAINE HCL 1%, 10 MG/ML (20ML VIAL) INF ONE ×2 (08:46)
[2023-05-31 09:23] VITALS: BP 164/73
== END 2023-05-31 09:47 | disposition home or self-care (01) ==
LOC: JASU-SURG 05:05
PROVIDERS: ATTEND Orthopaedic Surgery
PROC: 015D3ZZ Destruction of Femoral Nerve, Percutaneous Approach (ICD-10-PCS; principal; 2023-05-31 08:45)
DX: M17.12 Unilateral primary osteoarthritis, left knee (principal)

== ENCOUNTER 2024-12-26 06:38 | Day surgery (SDC) | payer OTHER ==
[2024-12-24 14:43] VITALS: BMI 31.1
[2024-12-26] MEDS ORDERED: LIDOCAINE HCL/PF 1% SDV 5ML VIAL ONE (07:33)
[2024-12-26] MEDS ORDERED: DEXAMETHASONE SOD PHOSPHATE 10 MG/1 ML VIAL ONE (07:33)
[2024-12-26] MEDS: LIDOCAINE HCL 1% PRESERVATIVE FREE - 30ML VIAL IJ ONE ×2 (11:10)
[2024-12-26] MEDS: IOHEXOL 180 MG/1 ML ML IJ ONE ×2 (11:12)
[2024-12-26] MEDS: DEXAMETHASONE SOD PHOSPHATE 10 MG/1 ML VIAL IM ONE ×2 (11:15)
[2024-12-26] MEDS: ACETAMINOPHEN 500 MG TABLET (FP) PO PRN (11:30)
[2024-12-26 11:31] VITALS: RESP 18; TEMP 98.2
[2024-12-26] MEDS ORDERED: ACETAMINOPHEN 500 MG TABLET (FP) ONE (11:32)
[2024-12-26 12:13] VITALS: BP 141/67; PULSE 60
== END 2024-12-26 12:15 | disposition home or self-care (01) ==
LOC: JASU-SURG 06:38
PROVIDERS: ATTEND Pain Medicine Pain Medicine
PROC: 3E0R3BZ Introduction of Anesthetic Agent into Spinal Canal, Percutaneous Approach (ICD-10-PCS; 2024-12-26)
PROC: 3E0R33Z Introduction of Anti-inflammatory into Spinal Canal, Percutaneous Approach (ICD-10-PCS; principal; 2024-12-26 10:45)
DX: M48.061 Spinal stenosis, lumbar region without neurogenic claudication (principal); M54.16 Radiculopathy, lumbar region
CPT/HCPCS: 76000-TC-FY; J1100

== ENCOUNTER 2025-01-23 06:13 | Day surgery (SDC) | payer OTHER ==
[2025-01-23] MEDS ORDERED: ACETAMINOPHEN 500 MG TABLET (FP) PO PRN (08:49)
[2025-01-23 13:36] VITALS: BP 154/67; PULSE 56; RESP 18; TEMP 97.3
== END 2025-01-23 13:14 | disposition home or self-care (01) ==
LOC: JASU-SURG 06:13
PROVIDERS: ATTEND Pain Medicine Pain Medicine
PROC: 3E0R3BZ Introduction of Anesthetic Agent into Spinal Canal, Percutaneous Approach (ICD-10-PCS; 2025-01-23)
PROC: 3E0R33Z Introduction of Anti-inflammatory into Spinal Canal, Percutaneous Approach (ICD-10-PCS; principal; 2025-01-23 12:00)
DX: M48.061 Spinal stenosis, lumbar region without neurogenic claudication (principal); M54.16 Radiculopathy, lumbar region
CPT/HCPCS: 72110-TC-FY; 76000-TC-FY